=== PATIENT | female | born 1990 | race Caucasian/White ===

== ENCOUNTER 2017-03-01 09:36 | Emergency (ER) | payer MEDICAID | END 2017-03-01 11:02 | disposition home or self-care (01) | LOC: D.ER 09:36 | DX: K04.7 Periapical abscess without sinus (principal); K08.89 Other specified disorders of teeth and supporting structures; R68.84 Jaw pain; H92.09 Otalgia, unspecified ear; R51 Headache; F17.200 Nicotine dependence, unspecified, uncomplicated ==

== ENCOUNTER 2019-02-25 19:50 | Emergency (ER) | payer MEDICAID ==
[~2019-02-25] VITALS: Ht 160 cm; Wt 86.4 kg
[2019-02-25 19:58] VITALS: Ht 160 cm; Wt 86.4 kg
[2019-02-25] MEDS ORDERED: ULTRAM50 MG PO (22:26)
[2019-02-25 22:39] VITALS: BP 106/77
== END 2019-02-25 22:39 | disposition home or self-care (01) ==
LOC: D.ER 19:50
DX: S90.121A Contusion of right lesser toe(s) without damage to nail, initial encounter (principal); X58.XXXA Exposure to other specified factors, initial encounter; Y93.89 Activity, other specified; Y92.89 Other specified places as the place of occurrence of the external cause